=== PATIENT | female | born 1990 | race African-American/Black ===

== ENCOUNTER 2017-04-04 16:18 | Emergency (ER) | payer BC ==
[~2017-04-04] VITALS: Ht 167.6 cm; Wt 70.0 kg
[~2017-04-04 16:18] MED LIST: AK POLY BAC OP; AMOXICILLIN500 MG OR; CIPRO500 MG PO; DEPO-PROVER150 MG/ML IM; FERROUS; FIORICET PO; IBUPROFEN200 M1 OR; LORTAB5 PO; MAALOX REG OR; NAPROSYN500 MG PO; NO CURRENT MEDS; NO HOME MEDS; ORTHO TRI-CYCLEN LO PO; PRENATAL1 TAB OR; TYLENOL #4 PO; ULTRAM50 M1 PO; phenergan supp RE
[2017-04-04 17:14] LABS: URINE BILIRUBIN - DIPSTICK NEGATIVE (NEGATIVE); URINE BLOOD DIPSTICK MODERATE (NEGATIVE); URINE CLARITY CLEAR; URINE COLOR YELLOW; URINE GLUCOSE - DIPSTICK NEGATIVE (NEGATIVE); URINE KETONE NEGATIVE (NEGATIVE); URINE LEUK ESTERASE NEGATIVE (NEGATIVE); URINE NITRITE - DIPSTICK NEGATIVE (Negative); URINE PH 6.5 (4.5-8.0); URINE PROTEIN - DIPSTICK NEGATIVE (NEG-TRACE); URINE SPECIFIC GRAVITY 1.015; URINE UROBILINOGEN - DIPSTICK 0.2 E.U./dL (0.2)
[2017-04-04 17:22] LABS: URINE SQUAMOUS EPITHELIAL CELL FEW EPI/hpf (0-FEW)
[2017-04-04] MEDS ORDERED: NAPROSYN500 MG PO (18:50)
[2017-04-04 18:55] VITALS: BP 134/71
== END 2017-04-04 19:00 | disposition home or self-care (01) | DRG 204 ==
LOC: ED 16:18
PROVIDERS: Emergency Medicine
DX: R07.81 Pleurodynia (principal); R10.11 Right upper quadrant pain

== ENCOUNTER 2017-09-05 19:32 | Emergency (ER) | payer OTHER, BC ==
[~2017-09-05] VITALS: Ht 167.6 cm; Wt 73.2 kg
[2017-09-05] MEDS ORDERED: ORPHENADRINE100 MG PO (20:03)
[2017-09-05] MEDS ORDERED: ULTRAM50 M1 PO (20:03)
[2017-09-05 20:54] VITALS: BP 137/97
== END 2017-09-05 20:55 | disposition home or self-care (01) | DRG 563 ==
LOC: ED 19:32
DX: S46.912A Strain of unspecified muscle, fascia and tendon at shoulder and upper arm level, left arm, initial encounter (principal); S29.012A Strain of muscle and tendon of back wall of thorax, initial encounter; X50.0XXA Overexertion from strenuous movement or load, initial encounter; Y93.E9 Activity, other interior property and clothing maintenance; Y92.59 Other trade areas as the place of occurrence of the external cause

== ENCOUNTER 2019-06-26 11:11 | Emergency (ER) | payer OTHER ==
[~2019-06-26] VITALS: Ht 167.6 cm; Wt 70.0 kg
[~2019-06-26 11:11] MED LIST changes: +ORPHENADRINE100 MG PO
[2019-06-26 11:12] VITALS: BP 122/92
[2019-06-26] MEDS ORDERED: ZYRTEC10 MG PO (11:25)
[2019-06-26] MEDS ORDERED: MOTRIN400 MG PO (11:37)
[2019-06-26] MEDS ORDERED: CYCLOBENZAPR5 MG PO (11:37)
== END 2019-06-26 12:15 | disposition home or self-care (01) | DRG 552 ==
LOC: ED 11:11
DX: S16.1XXA Strain of muscle, fascia and tendon at neck level, initial encounter (principal); X58.XXXA Exposure to other specified factors, initial encounter

== ENCOUNTER 2020-11-16 22:28 | Emergency (ER) | payer SELFPAY ==
[~2020-11-16] VITALS: Ht 167.6 cm; Wt 64.0 kg
[~2020-11-16 22:28] MED LIST changes: +CYCLOBENZAPR5 MG PO; +MOTRIN400 MG PO; +ZYRTEC10 MG PO
[2020-11-16 23:35] LABS: HEMATOCRIT 37.9 % (37.0-47.0); HEMOGLOBIN 12.1 g/dl (12.0-16.0); IMMATURE GRANULOCYTES 0.3 % (0.0-5.0); MEAN CELL VOLUME 73.6 fL CALC (80.0-100.0); MEAN CORPUSCULAR HGB 23.5 pG CALC (26.0-32.0); MEAN CORPUSCULAR HGB CONC 31.9 g/dL CAL (32.0-36.0); NEUT# 3.93 thou/uL (2.00-7.15); RED BLOOD COUNT 5.15 mill/uL (4.20-5.60); RED CELL DISTRI WIDTH 15.4 % (11.5-15.5)
[2020-11-16 23:38] LABS: URINE BILIRUBIN - DIPSTICK NEGATIVE (NEGATIVE); URINE BLOOD DIPSTICK LARGE (NEGATIVE); URINE COLOR YELLOW; URINE GLUCOSE - DIPSTICK NEGATIVE (NEGATIVE); URINE KETONE NEGATIVE (NEGATIVE); URINE LEUK ESTERASE NEGATIVE (NEGATIVE); URINE NITRITE - DIPSTICK NEGATIVE (Negative); URINE PH 6.5 (4.5-8.0); URINE PROTEIN - DIPSTICK NEGATIVE (NEG-TRACE); URINE SPECIFIC GRAVITY 1.015; URINE UROBILINOGEN - DIPSTICK 0.2 E.U./dL (0.2)
[2020-11-16 23:48] LABS: URINE BACTERIA FEW hpf; URINE RBC 25-50 RBC/hpf (0-5); URINE SQUAMOUS EPITHELIAL CELL FEW EPI/hpf (0-FEW)
[2020-11-17 00:01] LABS: ALBUMIN 4.4 g/dL (3.2-5.0); ALKALINE PHOSPHATASE 81 u/l (38-126); ANION GAP 12 (6-22 (CALC)); BUN 10 mg/dL (7-17); BUN/CREATININE RATIO 13 (12-20 (CALC)); CARBON DIOXIDE 24 mmol/l (22-30); CHLORIDE 104 mmol/l (95-108); CREATININE 0.8 mg/dL (0.5-1.0); GFR > 60 ML/MIN (>=60 (CALC)); GFR FOR AFR.AMER. > 60 ML/MIN (>=60 (CALC)); POTASSIUM 3.4 mmol/l (3.5-5.1); SGOT/AST 23 u/l (14-36); SODIUM 137 mmol/l (137-146); TOTAL PROTEIN 7.5 g/dL (6.3-8.2)
[2020-11-17 00:15] LABS: MYOGLOBIN 29 ng/mL (0 - 62)
[2020-11-17 00:16] VITALS: BP 135/84
[2020-11-17 00:20] LABS: BILIRUBIN, TOTAL 0.4 mg/dL (0.0-1.4)
[2020-11-17] MEDS ORDERED: ATIVAN0.5 MG PO (00:25)
== END 2020-11-17 00:34 | disposition home or self-care (01) | DRG 880 ==
LOC: ED 22:28
PROVIDERS: Emergency Medicine
DX: F41.9 Anxiety disorder, unspecified (principal); D57.3 Sickle-cell trait

== ENCOUNTER 2021-04-22 02:42 | Emergency (ER) | payer SELFPAY ==
[~2021-04-22] VITALS: Ht 167.6 cm; Wt 75.0 kg
[~2021-04-22 02:42] MED LIST changes: +ATIVAN0.5 MG PO
[2021-04-22 03:41] LABS: HEMATOCRIT 37.9 % (37.0-47.0); HEMOGLOBIN 11.8 g/dl (12.0-16.0); IMMATURE GRANULOCYTES 0.2 % (0.0-5.0); MEAN CELL VOLUME 74.3 fL CALC (80.0-100.0); MEAN CORPUSCULAR HGB 23.1 pG CALC (26.0-32.0); MEAN CORPUSCULAR HGB CONC 31.1 g/dL CAL (32.0-36.0); NEUT# 6.76 thou/uL (2.00-7.15); RED BLOOD COUNT 5.1 mill/uL (4.20-5.60); RED CELL DISTRI WIDTH 15.7 % (11.5-15.5)
[2021-04-22 03:58] LABS: URINE BILIRUBIN - DIPSTICK NEGATIVE (NEGATIVE); URINE BLOOD DIPSTICK NEGATIVE (NEGATIVE); URINE COLOR YELLOW; URINE GLUCOSE - DIPSTICK NEGATIVE (NEGATIVE); URINE KETONE NEGATIVE (NEGATIVE); URINE LEUK ESTERASE NEGATIVE (NEGATIVE); URINE PH 7.5 (4.5-8.0); URINE PROTEIN - DIPSTICK NEGATIVE (NEG-TRACE); URINE UROBILINOGEN - DIPSTICK 0.2 E.U./dL (0.2)
[2021-04-22 04:00] LABS: ALBUMIN 3.9 g/dL (3.2-5.0); ALKALINE PHOSPHATASE 80 u/l (38-126); AMYLASE 105 u/l (30-110); ANION GAP 12 (6-22 (CALC)); BILIRUBIN, TOTAL 0.4 mg/dL (0.0-1.4); BUN 12 mg/dL (7-17); BUN/CREATININE RATIO 15 (12-20 (CALC)); CARBON DIOXIDE 27 mmol/l (22-30); CHLORIDE 103 mmol/l (95-108); CREATININE 0.8 mg/dL (0.5-1.0); ETHYL ALCOHOL 0 mg/dl (0-30); GFR > 60 ML/MIN (>=60 (CALC)); GFR FOR AFR.AMER. > 60 ML/MIN (>=60 (CALC)); LIPASE 77 u/l (23-300); POTASSIUM 3.7 mmol/l (3.5-5.1); SGOT/AST 40 u/l (14-36); SODIUM 139 mmol/l (137-146); TOTAL PROTEIN 7.1 g/dL (6.3-8.2)
[2021-04-22 04:04] LABS: URINE NITRITE - DIPSTICK NEGATIVE (Negative)
[2021-04-22] MEDS ORDERED: PROTONIX40 MG PO (04:51)
[2021-04-22 04:59] VITALS: BP 103/57
== END 2021-04-22 05:08 | disposition home or self-care (01) | DRG 392 ==
LOC: ED 02:42
DX: R10.13 Epigastric pain (principal); I10 Essential (primary) hypertension; D57.3 Sickle-cell trait
CPT/HCPCS: S0164

== ENCOUNTER 2021-07-07 11:56 | Emergency (ER) | payer SELFPAY ==
[~2021-07-07 11:56] MED LIST changes: +PROTONIX40 MG PO
[2021-07-07] MEDS ORDERED: NORVASC5 M1 PO (12:37)
[2021-07-07 14:16] VITALS: BP 128/83
== END 2021-07-07 14:20 | disposition home or self-care (01) | DRG 153 ==
LOC: ED 11:56
DX: J02.9 Acute pharyngitis, unspecified (principal); I10 Essential (primary) hypertension; D57.3 Sickle-cell trait; Z20.822 Contact with and (suspected) exposure to COVID-19

== ENCOUNTER 2021-07-27 11:58 | Emergency (ER) | payer SELFPAY ==
[~2021-07-27] VITALS: Ht 167.6 cm; Wt 70.0 kg
[~2021-07-27 11:58] MED LIST changes: +NORVASC5 M1 PO
[2021-07-27] MEDS ORDERED: TESSALON PERLE100 MG PO ×2 (16:41→17:34)
[2021-07-27 17:00] VITALS: BP 150/68
== END 2021-07-27 17:00 | disposition home or self-care (01) | DRG 153 ==
LOC: ED 11:58
DX: J06.9 Acute upper respiratory infection, unspecified (principal); I10 Essential (primary) hypertension; D57.3 Sickle-cell trait; Z20.822 Contact with and (suspected) exposure to COVID-19

== ENCOUNTER 2021-09-05 04:02 | Emergency (ER) | payer SELFPAY ==
[~2021-09-05] VITALS: Ht 167.6 cm; Wt 200.0 kg
[~2021-09-05 04:02] MED LIST changes: +TESSALON PERLE100 MG PO
[2021-09-05 04:48] VITALS: BP 140/90
== END 2021-09-05 04:40 | disposition home or self-care (01) | DRG 605 ==
LOC: ED 04:02
PROC: 0HQCXZZ Repair Left Upper Arm Skin, External Approach (ICD-10-PCS; principal; 2021-09-05)
DX: S41.112A Laceration without foreign body of left upper arm, initial encounter (principal); I10 Essential (primary) hypertension; D57.3 Sickle-cell trait; W01.110A Fall on same level from slipping, tripping and stumbling with subsequent striking against sharp glass, initial encounter; Y92.009 Unspecified place in unspecified non-institutional (private) residence as the place of occurrence of the external cause

== ENCOUNTER 2021-09-19 12:02 | Emergency (ER) | payer SELFPAY ==
[~2021-09-19] VITALS: Ht 167.6 cm; Wt 77.4 kg
[2021-09-19] MEDS ORDERED: CETIRIZINE10 MG PO (12:20)
[2021-09-19] MEDS ORDERED: NORVASC5 M1 PO (12:20)
[2021-09-19 12:55] VITALS: BP 134/89
== END 2021-09-19 12:55 | disposition home or self-care (01) | DRG 950 ==
LOC: ED 12:02
DX: S51.812D Laceration without foreign body of left forearm, subsequent encounter (principal); I10 Essential (primary) hypertension; D57.3 Sickle-cell trait; X58.XXXD Exposure to other specified factors, subsequent encounter

== ENCOUNTER 2021-10-26 00:35 | Emergency (ER) | payer SELFPAY ==
[~2021-10-26] VITALS: Ht 167.6 cm; Wt 79.4 kg
[~2021-10-26 00:35] MED LIST changes: +CETIRIZINE10 MG PO
[2021-10-26] MEDS ORDERED: TAM75CAP PO (02:12)
[2021-10-26 04:27] VITALS: BP 121/68
== END 2021-10-26 02:45 | disposition home or self-care (01) | DRG 195 ==
LOC: ED 00:35
DX: J10.1 Influenza due to other identified influenza virus with other respiratory manifestations (principal); I10 Essential (primary) hypertension; D57.3 Sickle-cell trait

== ENCOUNTER 2022-05-04 00:01 | Emergency (ER) | payer SELFPAY ==
[~2022-05-04] VITALS: Ht 167.6 cm; Wt 77.0 kg
[~2022-05-04 00:01] MED LIST changes: +KEFLEX500 MG PO; +MOTRIN800 MG PO; +TAM75CAP PO
[2022-05-05 00:08] VITALS: BP 137/96
[2022-05-05 00:15] VITALS: BP 134/92
[2022-05-05 00:30] VITALS: BP 129/93
[2022-05-05 00:52] LABS: URINE BILIRUBIN - DIPSTICK NEGATIVE (NEGATIVE); URINE BLOOD DIPSTICK MODERATE (NEGATIVE); URINE COLOR YELLOW; URINE GLUCOSE - DIPSTICK NEGATIVE (NEGATIVE); URINE KETONE NEGATIVE (NEGATIVE); URINE PH 6.5 (4.5-8.0); URINE PROTEIN - DIPSTICK NEGATIVE (NEG-TRACE); URINE SPECIFIC GRAVITY 1.015; URINE UROBILINOGEN - DIPSTICK 0.2 E.U./dL (0.2)
[2022-05-05 00:55] LABS: URINE LEUK ESTERASE NEGATIVE (NEGATIVE); URINE NITRITE - DIPSTICK NEGATIVE (Negative)
[2022-05-05 00:57] LABS: URINE EPITHELIAL CELLS FEW EPI/hpf (0-FEW); URINE RBC 50-100 RBC/hpf (0-5)
[2022-05-05 00:58] LABS: URINE BACTERIA FEW hpf
[2022-05-05 02:16] VITALS: BP 129/93
[2022-05-05] MEDS ORDERED: MIRALAX17 GM/SCOO PO (02:20)
[2022-05-05] MEDS ORDERED: COLACE100 MG PO (02:20)
== END 2022-05-05 02:29 | disposition home or self-care (01) | DRG 392 ==
LOC: ED 00:01
DX: K59.00 Constipation, unspecified (principal); I10 Essential (primary) hypertension; D57.3 Sickle-cell trait

== ENCOUNTER 2022-05-27 02:39 | Emergency (ER) | payer SELFPAY ==
[2022-05-27] VITALS (11 sets, daily range): BP systolic 106–147; BP diastolic 68–98
[~2022-05-27] VITALS: Ht 167.6 cm; Wt 77.0 kg
[~2022-05-27 02:39] MED LIST changes: +COLACE100 MG PO; +MIRALAX17 GM/SCOO PO
[2022-05-27 03:34] LABS: HEMATOCRIT 38.1 % (37.0-47.0); HEMOGLOBIN 12.1 g/dl (12.0-16.0); IMMATURE GRANULOCYTES 0.3 % (0.0-5.0); MEAN CELL VOLUME 73.6 fL CALC (80.0-100.0); MEAN CORPUSCULAR HGB 23.4 pG CALC (26.0-32.0); MEAN CORPUSCULAR HGB CONC 31.8 g/dL CAL (32.0-36.0); NEUT# 4.4 thou/uL (2.00-7.15); RED BLOOD COUNT 5.18 mill/uL (4.20-5.60); RED CELL DISTRI WIDTH 14.8 % (11.5-15.5)
[2022-05-27 03:47] LABS: ALBUMIN 3.8 g/dL (3.2-5.0); ALKALINE PHOSPHATASE 89 u/l (38-126); AMYLASE 96 u/l (30-110); ANION GAP 11 (6-22 (CALC)); BUN 8 mg/dL (7-17); BUN/CREATININE RATIO 10 (12-20 (CALC)); CARBON DIOXIDE 25 mmol/l (22-30); CHLORIDE 107 mmol/l (95-108); CREATININE 0.8 mg/dL (0.5-1.0); GFR FOR AFR.AMER. > 60 ML/MIN (>=60 (CALC)); GFR OTHER RACES > 60 ML/MIN (>=60 (CALC)); LIPASE 67 u/l (23-300); MAGNESIUM 1.6 mg/dL (1.6-2.3); POTASSIUM 3.8 mmol/l (3.5-5.1); SGOT/AST 20 u/l (14-36); SODIUM 138 mmol/l (137-146)
[2022-05-27 03:54] LABS: BILIRUBIN, TOTAL 0.2 mg/dL (0.0-1.4)
[2022-05-27 03:59] LABS: MYOGLOBIN 25 ng/mL (0 - 62)
[2022-05-27 04:17] LABS: TSH, 3RD GENERATION 1.27 uIU/mL (0.47 - 4.68)
[2022-05-27 05:04] LABS: URINE BILIRUBIN - DIPSTICK NEGATIVE (NEGATIVE); URINE BLOOD DIPSTICK NEGATIVE (NEGATIVE); URINE COLOR YELLOW; URINE GLUCOSE - DIPSTICK NEGATIVE (NEGATIVE); URINE KETONE NEGATIVE (NEGATIVE); URINE LEUK ESTERASE NEGATIVE (NEGATIVE); URINE PROTEIN - DIPSTICK NEGATIVE (NEG-TRACE); URINE SPECIFIC GRAVITY <=1.005; URINE UROBILINOGEN - DIPSTICK 0.2 E.U./dL (0.2)
[2022-05-27 05:05] LABS: URINE NITRITE - DIPSTICK NEGATIVE (Negative)
[2022-05-27] MEDS ORDERED: AMLODIPINE BESYL5 MG PO (05:21)
[2022-05-27] MEDS ORDERED: PEPCID20 MG PO (05:21)
== END 2022-05-27 05:39 | disposition home or self-care (01) | DRG 392 ==
LOC: ED 02:39
PROVIDERS: Family Medicine
DX: K59.00 Constipation, unspecified (principal); K21.9 Gastro-esophageal reflux disease without esophagitis; I10 Essential (primary) hypertension; D57.3 Sickle-cell trait
CPT/HCPCS: S0164

== ENCOUNTER 2022-12-19 19:10 | Emergency (ER) | payer OTHER ==
[~2022-12-19] VITALS: Ht 167.6 cm; Wt 70.0 kg
[2022-12-19] VITALS (15 sets, daily range): BP systolic 107–148; BP diastolic 61–100
[~2022-12-19 19:10] MED LIST changes: +AMLODIPINE BESYL5 MG PO; +PEPCID20 MG PO
[2022-12-19 19:42] LABS: BASO% 0.4 % (0-3); EOS% 0.6 % (0-8); HEMATOCRIT 37.9 % (37.0-47.0); HEMOGLOBIN 12.1 g/dl (12.0-16.0); IMMATURE GRANULOCYTES 0.2 % (0.0-5.0); LYMPH% 36.2 % (15-41); MEAN CELL VOLUME 70.7 fL CALC (80.0-100.0); MEAN CORPUSCULAR HGB 22.6 pG CALC (26.0-32.0); MEAN CORPUSCULAR HGB CONC 31.9 g/dL CAL (32.0-36.0); MONO% 12.6 % (2-13); NEUT# 4.52 thou/uL (2.00-7.15); RED BLOOD COUNT 5.36 mill/uL (4.20-5.60); RED CELL DISTRI WIDTH 15.8 % (11.5-15.5)
[2022-12-19 19:53] LABS: ALBUMIN 4.5 g/dL (3.2-5.0); ALKALINE PHOSPHATASE 89 u/l (38-126); ANION GAP 12 (6-22 (CALC)); BUN 9 mg/dL (7-17); BUN/CREATININE RATIO 12 (12-20 (CALC)); CARBON DIOXIDE 21 mmol/l (22-30); CHLORIDE 105 mmol/l (95-108); CREATININE 0.8 mg/dL (0.5-1.0); GFR FOR AFR.AMER. > 60 ML/MIN (>=60 (CALC)); GFR OTHER RACES > 60 ML/MIN (>=60 (CALC)); LIPASE 58 u/l (23-300); MAGNESIUM 1.6 mg/dL (1.6-2.3); POTASSIUM 3.2 mmol/l (3.5-5.1); SGOT/AST 28 u/l (14-36); SODIUM 135 mmol/l (137-146); TOTAL PROTEIN 7.7 g/dL (6.3-8.2)
[2022-12-19 19:59] LABS: BILIRUBIN, TOTAL 0.3 mg/dL (0.0-1.4)
[2022-12-19 20:29] LABS: URINE BILIRUBIN - DIPSTICK NEGATIVE (NEGATIVE); URINE BLOOD DIPSTICK NEGATIVE (NEGATIVE); URINE COLOR YELLOW; URINE GLUCOSE - DIPSTICK NEGATIVE (NEGATIVE); URINE KETONE NEGATIVE (NEGATIVE); URINE PROTEIN - DIPSTICK NEGATIVE (NEG-TRACE); URINE UROBILINOGEN - DIPSTICK 0.2 E.U./dL (0.2)
[2022-12-19 20:30] LABS: URINE LEUK ESTERASE MODERATE (NEGATIVE); URINE NITRITE - DIPSTICK NEGATIVE (Negative)
[2022-12-19 20:35] LABS: URINE BACTERIA FEW hpf; URINE RBC 0-2 RBC/hpf (0-5); URINE SQUAMOUS EPITHELIAL CELL MODERATE EPI/hpf (0-FEW)
[2022-12-19] MEDS ORDERED: K-TAB20 MEQ PO (22:51)
== END 2022-12-19 23:25 | disposition home or self-care (01) | DRG 313 ==
LOC: ED 19:10
PROVIDERS: Internal Medicine
DX: R07.9 Chest pain, unspecified (principal); I10 Essential (primary) hypertension; F41.9 Anxiety disorder, unspecified

== ENCOUNTER 2022-12-22 20:05 | Emergency (ER) | payer OTHER ==
[2022-12-22] VITALS (7 sets, daily range): BP systolic 127–143; BP diastolic 80–95
[~2022-12-22] VITALS: Ht 167.6 cm; Wt 75.7 kg
[~2022-12-22 20:05] MED LIST changes: +K-TAB20 MEQ PO
[2022-12-22 20:55] LABS: URINE BILIRUBIN - DIPSTICK NEGATIVE (NEGATIVE); URINE BLOOD DIPSTICK NEGATIVE (NEGATIVE); URINE COLOR YELLOW; URINE GLUCOSE - DIPSTICK NEGATIVE (NEGATIVE); URINE KETONE NEGATIVE (NEGATIVE); URINE LEUK ESTERASE TRACE (NEGATIVE); URINE PH 5.5 (4.5-8.0); URINE PROTEIN - DIPSTICK NEGATIVE (NEG-TRACE); URINE UROBILINOGEN - DIPSTICK 0.2 E.U./dL (0.2)
[2022-12-22 20:58] LABS: URINE NITRITE - DIPSTICK NEGATIVE (Negative)
[2022-12-22 20:59] LABS: BASO% 0.5 % (0-3); EOS% 0.6 % (0-8); HEMATOCRIT 38.2 % (37.0-47.0); HEMOGLOBIN 12.3 g/dl (12.0-16.0); IMMATURE GRANULOCYTES 0.1 % (0.0-5.0); LYMPH% 27.8 % (15-41); MEAN CORPUSCULAR HGB 22.9 pG CALC (26.0-32.0); MEAN CORPUSCULAR HGB CONC 32.2 g/dL CAL (32.0-36.0); MONO% 9.8 % (2-13); NEUT# 5.75 thou/uL (2.00-7.15); NEUT% 61.2 % (42-76); RED BLOOD COUNT 5.38 mill/uL (4.20-5.60); RED CELL DISTRI WIDTH 15.9 % (11.5-15.5)
[2022-12-22 21:05] LABS: ALBUMIN 4.6 g/dL (3.2-5.0); ALKALINE PHOSPHATASE 89 u/l (38-126); ANION GAP 12 (6-22 (CALC)); BILIRUBIN, TOTAL 0.2 mg/dL (0.02-1.3); BUN 10 mg/dL (7-17); BUN/CREATININE RATIO 13 (12-20 (CALC)); CARBON DIOXIDE 22 mmol/l (22-30); CHLORIDE 106 mmol/l (95-108); CREATININE 0.8 mg/dL (0.5-1.0); GFR FOR AFR.AMER. > 60 ML/MIN (>=60 (CALC)); GFR OTHER RACES > 60 ML/MIN (>=60 (CALC)); LIPASE 61 u/l (23-300); POTASSIUM 3.7 mmol/l (3.5-5.1); SGOT/AST 28 u/l (14-36); SODIUM 137 mmol/l (137-146); TOTAL PROTEIN 8.1 g/dL (6.3-8.2)
[2022-12-22] MEDS ORDERED: LEXAPRO10 MG PO (21:44)
== END 2022-12-22 22:17 | disposition home or self-care (01) | DRG 313 ==
LOC: ED 20:05
PROVIDERS: Family Medicine
DX: R07.89 Other chest pain (principal); F41.9 Anxiety disorder, unspecified; I10 Essential (primary) hypertension; D57.3 Sickle-cell trait

== ENCOUNTER 2022-12-29 21:03 | Emergency (ER) | payer OTHER ==
[~2022-12-29] VITALS: Ht 167.6 cm; Wt 76.0 kg
[~2022-12-29 21:03] MED LIST changes: +LEXAPRO10 MG PO
[2022-12-29 21:09] VITALS: BP 156/90
[2022-12-29 21:22] LABS: GFR FOR AFR.AMER. > 60 ML/MIN (>=60 (CALC)); GFR OTHER RACES > 60 ML/MIN (>=60 (CALC))
[2022-12-29 21:29] LABS: BASO% 0.6 % (0-3); HEMATOCRIT 42.4 % (37.0-47.0); HEMOGLOBIN 13.2 g/dl (12.0-16.0); IMMATURE GRANULOCYTES 0.2 % (0.0-5.0); LYMPH% 37.9 % (15-41); MEAN CELL VOLUME 70.9 fL CALC (80.0-100.0); MEAN CORPUSCULAR HGB 22.1 pG CALC (26.0-32.0); MEAN CORPUSCULAR HGB CONC 31.1 g/dL CAL (32.0-36.0); MONO% 7.9 % (2-13); NEUT# 4.4 thou/uL (2.00-7.15); NEUT% 52.4 % (42-76); RED BLOOD COUNT 5.98 mill/uL (4.20-5.60)
[2022-12-29 21:30] LABS: INTERNATIONAL NORMALIZED RATIO 0.9 RATIO (0.7-1.3); PROTHROMBIN TIME 9.4 SECONDS (9.0-12.5)
[2022-12-29] MEDS ORDERED: METOPROL TAR25 MG PO (21:31)
[2022-12-29 21:39] LABS: ALKALINE PHOSPHATASE 107 u/l (38-126); ANION GAP 14 (6-22 (CALC)); BUN 11 mg/dL (7-17); BUN/CREATININE RATIO 14 (12-20 (CALC)); CARBON DIOXIDE 22 mmol/l (22-30); CHLORIDE 105 mmol/l (95-108); CREATININE 0.8 mg/dL (0.5-1.0); GFR FOR AFR.AMER. > 60 ML/MIN (>=60 (CALC)); GFR OTHER RACES > 60 ML/MIN (>=60 (CALC)); POTASSIUM 3.7 mmol/l (3.5-5.1); SODIUM 138 mmol/l (137-146); TOTAL PROTEIN 8.6 g/dL (6.3-8.2)
[2022-12-29 21:44] LABS: BILIRUBIN, TOTAL 0.5 mg/dL (0.02-1.3); SGOT/AST 60 u/l (14-36)
[2022-12-29 21:45] VITALS: BP 130/91
[2022-12-29 22:00] VITALS: BP 139/100
[2022-12-29 22:04] VITALS: BP 134/87
[2022-12-29] MEDS ORDERED: ATIVAN0.5 MG PO (22:08)
[2022-12-29 22:15] VITALS: BP 127/92
[2022-12-29 22:30] VITALS: BP 117/76
== END 2022-12-29 22:45 | disposition home or self-care (01) | DRG 880 ==
LOC: ED 21:03
PROVIDERS: Emergency Medicine
DX: F41.9 Anxiety disorder, unspecified (principal); I10 Essential (primary) hypertension; D57.3 Sickle-cell trait; R20.2 Paresthesia of skin

== ENCOUNTER 2023-01-02 23:49 | Emergency (ER) | payer OTHER ==
[~2023-01-02] VITALS: Ht 167.6 cm; Wt 76.0 kg
[~2023-01-02 23:49] MED LIST changes: +METOPROL TAR25 MG PO
[2023-01-03 00:01] VITALS: BP 144/98
[2023-01-03 00:30] VITALS: BP 128/92
[2023-01-03 00:42] LABS: BASO% 0.4 % (0-3); EOS% 0.9 % (0-8); HEMATOCRIT 37.5 % (37.0-47.0); IMMATURE GRANULOCYTES 0.1 % (0.0-5.0); LYMPH% 31.6 % (15-41); MEAN CELL VOLUME 71.6 fL CALC (80.0-100.0); MEAN CORPUSCULAR HGB 22.9 pG CALC (26.0-32.0); MONO% 11.3 % (2-13); NEUT# 3.85 thou/uL (2.00-7.15); NEUT% 55.7 % (42-76); RED BLOOD COUNT 5.24 mill/uL (4.20-5.60); RED CELL DISTRI WIDTH 15.8 % (11.5-15.5)
[2023-01-03 00:56] LABS: ALBUMIN 4.4 g/dL (3.2-5.0); ALKALINE PHOSPHATASE 79 u/l (38-126); ANION GAP 12 (6-22 (CALC)); BUN 14 mg/dL (7-17); BUN/CREATININE RATIO 16 (12-20 (CALC)); CARBON DIOXIDE 24 mmol/l (22-30); CHLORIDE 104 mmol/l (95-108); CREATININE 0.9 mg/dL (0.5-1.0); GFR FOR AFR.AMER. > 60 ML/MIN (>=60 (CALC)); GFR OTHER RACES > 60 ML/MIN (>=60 (CALC)); POTASSIUM 3.7 mmol/l (3.5-5.1); SGOT/AST 32 u/l (14-36); SODIUM 136 mmol/l (137-146); TOTAL PROTEIN 7.5 g/dL (6.3-8.2)
[2023-01-03 01:03] VITALS: BP 110/80
[2023-01-03 01:07] LABS: BILIRUBIN, TOTAL 0.1 mg/dL (0.02-1.3)
[2023-01-03 01:30] VITALS: BP 94/60
[2023-01-03] MEDS ORDERED: LOPRESSOR50 M1 PO (01:35)
[2023-01-03 01:53] VITALS: BP 94/60
[2023-01-03] MEDS ORDERED: NORVASC5 M1 PO (23:55)
[2023-01-04] MEDS ORDERED: VISTARIL25 MG PO (22:06)
== END 2023-01-03 01:59 | disposition home or self-care (01) | DRG 305 ==
LOC: ED 23:49
PROVIDERS: Family Medicine
DX: I10 Essential (primary) hypertension (principal); D57.3 Sickle-cell trait

== ENCOUNTER 2023-01-03 23:22 | Emergency (ER) | payer OTHER ==
[~2023-01-03] VITALS: Ht 167.6 cm; Wt 73.0 kg
[~2023-01-03 23:22] MED LIST changes: +LOPRESSOR50 M1 PO
[2023-01-03 23:36] VITALS: BP 128/83
[2023-01-03 23:45] VITALS: BP 105/74
[2023-01-03] MEDS ORDERED: NORVASC5 M1 PO (23:55)
[2023-01-04] VITALS: BP 117/76
[2023-01-04 00:15] VITALS: BP 109/73
[2023-01-04 03:20] VITALS: BP 112/76
[2023-01-04] MEDS ORDERED: VISTARIL25 MG PO (22:06)
== END 2023-01-04 01:30 | disposition home or self-care (01) | DRG 880 ==
LOC: ED 23:22
DX: F41.9 Anxiety disorder, unspecified (principal); I10 Essential (primary) hypertension; R00.2 Palpitations; D57.3 Sickle-cell trait

== ENCOUNTER 2023-01-04 18:49 | Emergency (ER) | payer OTHER ==
[~2023-01-04] VITALS: Ht 167.6 cm; Wt 73.0 kg
[2023-01-04] VITALS (13 sets, daily range): BP systolic 104–132; BP diastolic 68–91
[2023-01-04 20:53] LABS: BASO% 0.5 % (0-3); EOS% 0.6 % (0-8); HEMOGLOBIN 11.8 g/dl (12.0-16.0); LYMPH% 27.1 % (15-41); MEAN CELL VOLUME 71.3 fL CALC (80.0-100.0); MEAN CORPUSCULAR HGB 22.1 pG CALC (26.0-32.0); MEAN CORPUSCULAR HGB CONC 31.1 g/dL CAL (32.0-36.0); MONO% 10.8 % (2-13); NEUT# 3.91 thou/uL (2.00-7.15); RED BLOOD COUNT 5.33 mill/uL (4.20-5.60); RED CELL DISTRI WIDTH 15.9 % (11.5-15.5)
[2023-01-04 21:06] LABS: ALBUMIN 4.3 g/dL (3.2-5.0); ALKALINE PHOSPHATASE 68 u/l (38-126); ANION GAP 11 (6-22 (CALC)); BILIRUBIN, TOTAL 0.1 mg/dL (0.02-1.3); BUN 11 mg/dL (7-17); BUN/CREATININE RATIO 13 (12-20 (CALC)); CARBON DIOXIDE 26 mmol/l (22-30); CHLORIDE 105 mmol/l (95-108); CREATININE 0.9 mg/dL (0.5-1.0); GFR FOR AFR.AMER. > 60 ML/MIN (>=60 (CALC)); GFR OTHER RACES > 60 ML/MIN (>=60 (CALC)); MAGNESIUM 1.8 mg/dL (1.6-2.3); POTASSIUM 3.5 mmol/l (3.5-5.1); SGOT/AST 31 u/l (14-36); SODIUM 138 mmol/l (137-146); TOTAL PROTEIN 7.4 g/dL (6.3-8.2)
[2023-01-04 21:52] LABS: URINE BILIRUBIN - DIPSTICK NEGATIVE (NEGATIVE); URINE BLOOD DIPSTICK NEGATIVE (NEGATIVE); URINE COLOR YELLOW; URINE GLUCOSE - DIPSTICK NEGATIVE (NEGATIVE); URINE KETONE NEGATIVE (NEGATIVE); URINE LEUK ESTERASE NEGATIVE (NEGATIVE); URINE PROTEIN - DIPSTICK NEGATIVE (NEG-TRACE); URINE UROBILINOGEN - DIPSTICK 0.2 E.U./dL (0.2)
[2023-01-04 21:54] LABS: URINE NITRITE - DIPSTICK NEGATIVE (Negative)
[2023-01-04] MEDS ORDERED: VISTARIL25 MG PO (22:06)
== END 2023-01-04 23:24 | disposition home or self-care (01) | DRG 880 ==
LOC: ED 18:49
PROVIDERS: Family Medicine
DX: F41.9 Anxiety disorder, unspecified (principal); I10 Essential (primary) hypertension; D57.3 Sickle-cell trait

== ENCOUNTER 2023-01-10 22:27 | Emergency (ER) | payer OTHER ==
[~2023-01-10] VITALS: Ht 167.6 cm; Wt 73.0 kg
[~2023-01-10 22:27] MED LIST changes: +VISTARIL25 MG PO
[2023-01-10 22:49] VITALS: BP 120/81
== END 2023-01-10 22:59 | disposition left against medical advice (07) | DRG 951 ==
LOC: ED 22:27 → LWOBS 22:48
DX: Z53.21 Procedure and treatment not carried out due to patient leaving prior to being seen by health care provider (principal)

== ENCOUNTER 2024-06-07 17:04 | Emergency (ER) | payer OTHER ==
[~2024-06-07] VITALS: Ht 167.6 cm; Wt 82.0 kg
[~2024-06-07 17:04] MED LIST changes: +MEDDOSEPAK PO; +NABUMETONE750 MG PO; +VISTARIL 50MG C50 M1 PO
[2024-06-07] MEDS ORDERED: ZPAK PO (18:10)
[2024-06-07 18:39] VITALS: BP 122/88
== END 2024-06-07 18:35 | disposition home or self-care (01) | DRG 153 ==
LOC: ED 17:04
DX: J02.9 Acute pharyngitis, unspecified (principal); I10 Essential (primary) hypertension; D57.3 Sickle-cell trait; Z20.822 Contact with and (suspected) exposure to COVID-19

== ENCOUNTER 2024-07-22 19:20 | Emergency (ER) | payer OTHER ==
[~2024-07-22] VITALS: Ht 167.6 cm; Wt 79.4 kg
[~2024-07-22 19:20] MED LIST changes: +ZPAK PO
[2024-07-22] MEDS ORDERED: DiphenhydrAMINE HCL 50 MG/ML SDV IV ONE (21:50)
[2024-07-22] MEDS ORDERED: SODIUM CHLORIDE 0.9% 1,000 ML IV ONE (21:50)
[2024-07-22] MEDS ORDERED: DEXAMETHASONE SOD. PHOSPHATE 10 MG/ML VIAL IV ONE (21:50)
[2024-07-22] MEDS ORDERED: METOCLOPRAMIDE HCL 10 MG/2 ML SDV IV ONE (21:50)
[2024-07-22 22:29] LABS: BASO% 0.4 % (0-3); EOS% 0.8 % (0-8); HEMATOCRIT 37.5 % (37.0-47.0); HEMOGLOBIN 11.9 g/dl (12.0-16.0); IMMATURE GRANULOCYTES 0.2 % (0.0-5.0); LYMPH% 29.1 % (15-41); MEAN CELL VOLUME 69.8 fL CALC (80.0-100.0); MEAN CORPUSCULAR HGB 22.2 pG CALC (26.0-32.0); MEAN CORPUSCULAR HGB CONC 31.7 g/dL CAL (32.0-36.0); MONO% 8.9 % (2-13); NEUT# 5.48 thou/uL (2.00-7.15); NEUT% 60.6 % (42-76); RED BLOOD COUNT 5.37 mill/uL (4.20-5.60); RED CELL DISTRI WIDTH 16.9 % (11.5-15.5); URINE BILIRUBIN - DIPSTICK Negative (NEGATIVE); URINE BLOOD DIPSTICK Moderate (NEGATIVE); URINE GLUCOSE - DIPSTICK Negative (NEGATIVE); URINE KETONE Negative (NEGATIVE); URINE LEUK ESTERASE Negative (NEGATIVE); URINE NITRITE - DIPSTICK Negative (Negative); URINE PH 5.5 (4.5-8.0); URINE PROTEIN - DIPSTICK Negative (NEG-TRACE); URINE SPECIFIC GRAVITY 1.015; URINE UROBILINOGEN - DIPSTICK 0.2 E.U./dL (0.2)
[2024-07-22 22:30] LABS: URINE COLOR Yellow
[2024-07-22 22:39] LABS: URINE SQUAMOUS EPITHELIAL CELL FEW EPI/hpf (0-FEW)
[2024-07-22 22:51] LABS: ALBUMIN 4.4 g/dL (3.2-5.0); CREATININE 0.8 mg/dL (0.5-1.0); POTASSIUM 3.8 mmol/l (3.5-5.1); TOTAL PROTEIN 7.7 g/dL (6.3-8.2)
[2024-07-22 23:08] LABS: BILIRUBIN, TOTAL 0.5 mg/dL (0.02-1.3)
[2024-07-23] MEDS ORDERED: CELEBREX200 MG PO (00:03)
[2024-07-23 00:29] VITALS: BP 117/82
== END 2024-07-23 00:36 | disposition home or self-care (01) | DRG 103 ==
LOC: ED 19:20
PROVIDERS: Emergency Medicine
DX: R51.9 Headache, unspecified (principal); I10 Essential (primary) hypertension; D57.3 Sickle-cell trait

== ENCOUNTER 2025-01-12 08:44 | Emergency (ER) | payer OTHER ==
[~2025-01-12] VITALS: Ht 167.6 cm; Wt 79.4 kg
[~2025-01-12 08:44] MED LIST changes: +CELEBREX200 MG PO
[2025-01-12 08:58] VITALS: BP 116/82
[2025-01-12 09:00] VITALS: BP 110/76
[2025-01-12 09:31] VITALS: BP 122/83
[2025-01-12] MEDS ORDERED: KETOROLAC TROMETHAMINE 30 MG/ML SDV IM ONE (09:35)
[2025-01-12 10:00] VITALS: BP 111/74
[2025-01-12 10:30] VITALS: BP 117/79
[2025-01-12 10:38] VITALS: BP 117/79
== END 2025-01-12 10:58 | disposition home or self-care (01) | DRG 552 ==
LOC: ED 08:44
DX: S13.9XXA Sprain of joints and ligaments of unspecified parts of neck, initial encounter (principal); I10 Essential (primary) hypertension; V49.40XA Driver injured in collision with unspecified motor vehicles in traffic accident, initial encounter